=== PATIENT | female | born 1965 | race Caucasian/White ===

== ENCOUNTER 2022-05-29 13:12 | Emergency (ER) | payer OTHER ==
[~2022-05-29] VITALS: Ht 157.5 cm; Wt 59.9 kg
[2022-05-29 13:53] VITALS: BP 129/86
[2022-05-29] MEDS ORDERED: IBUPROFEN 600 MG TAB PO ONE (14:15)
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
[2022-05-29] MEDS ORDERED: METH-1681 PO (16:22)
[2022-05-29] MEDS ORDERED: IBUP-2213 PO (16:22)
[2022-05-29 16:45] VITALS: BP 118/78
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
== END 2022-05-29 16:45 | disposition home or self-care (01) ==
LOC: MED 13:12
DX: S20.219A Contusion of unspecified front wall of thorax, initial encounter (principal); M79.601 Pain in right arm; Z79.899 Other long term (current) drug therapy; V89.2XXA Person injured in unspecified motor-vehicle accident, traffic, initial encounter; Y93.89 Activity, other specified; Y92.89 Other specified places as the place of occurrence of the external cause; Y99.8 Other external cause status
CPT/HCPCS: 71045; 93005; 99283; Q0092